=== PATIENT | female | born 1990 | race Caucasian/White ===

== ENCOUNTER 2016-07-24 13:30 | Emergency (ER) | payer OTHER ==
--- NOTE | 2016-07-24 14:59 | ED NURSING NOTES ---
Clinical Report - Nurses [facility] [address] [place] [address] 07/24/2016 13:30 Patient: THA PEREIRA TRIAGE Triage time 1435. Acuity: LEVEL 4. Chief Complaint: RIGHT EAR FORIEGN BODY. --14:41 Lily Quiñonez R.N. 14:35 07/24/16. BP: 96/59. HR: 94. RR: 18. O2 saturation: 100%. Temp: 98.4 F. Pain level now: 07/30. --14:41 Lily Quiñonez R.N. Weight: 56.6 kg stated. Height/Length: 63 inches Per Patient. BMI: 22.1. --14:39 Lily Quiñonez R.N. Medications None. --14:40 Lily Quiñonez R.N. Allergies None. --14:40 Lily Quiñonez R.N. History Arrived by private vehicle. Historian: patient. Accompanied by friend. Onset. (10am was cleaning ear, and cotton cam off q-tip c/o pain and muffled hearring). PAST MEDICAL HX: Negative. Last normal menstrual period- 2 days. SURGERY HX: No history of previous surgery. SOCIAL HX: Light tobacco smoker (cigarette)- less than 1/2 a pack per day. Occasional alcohol use. No drug use. --14:41 Lily Quiñonez R.N. Interventions ID band on patient. To treatment room. --14:41 Lily Quiñonez R.N. PHYSICAL ASSESSMENT 14:50 07/24/16. Ambulatory to room. GENERAL / NEURO / PSYCH: Alert. Appears in no acute distress. HEENT: No facial asymmetry noted. Pupils equal, round and reactive to light. RESPIRATORY: Respirations not labored. CVS: Capillary refill less than 2 seconds. SKIN: Skin is warm and dry. --14:50 Radha Wetzel R.N. NURSING PROGRESS NOTES Two patient identifiers checked. Call light placed in reach. Bed placed in lowest position. Brakes of bed on. Patient ready for evaluation- chart flagged and ED physician and RN QUALITY notified. --14:51 Radha Wetzel R.N. DISPOSITION / DISCHARGE Departure time: 1509Jul 24 2016. Condition at departure: improved and stable. No learning barriers present. Discharge instructions provided and reviewed with the patient. Patient verbalized understanding. Written instructions provided in Comoran. The patient was discharged by the nurse practitioner. She was discharged home and accompanied by literacy tutor. She left the Emergency Department ambulatory and via private vehicle. --18:10 Radha Wetzel R.N. Locked/Released at 07/24/2016 18:10 by Radha Wetzel R.N.
--- NOTE | 2016-07-24 14:59 | ED CLINICAL REPORT ---
Clinical Report - Physicians/Mid Levels [facility] [address] [place] [address] 07/24/2016 13:30 Patient: THA PEREIRA Time Seen: 14:52; initial patient contact, initial documentation, patient care assumed. Arrived- By private vehicle. Historian- patient. HISTORY OF PRESENT ILLNESS Chief Complaint: FOREIGN BODY. This started today and is still present. Modifying factors. Not worsened by anything. Not relieved by anything. Location- right ear. The pain is described as mild. The patient has had ear pain and a foreign body in the ear. No ear drainage, hearing loss, ear trauma, recent barotrauma or tinnitus. (cleaning ears out with qtips this am thinks part of qtip is in ear, did use tweezers and shaking her head to get it out). Similar symptoms previously: None. Recent medical care: Not recently seen/assessed. REVIEW OF SYSTEMS All systems otherwise negative, except as recorded above. PAST HISTORY Negative. SOCIAL HISTORY Light tobacco smoker. Occasional alcohol use. Not exposed to second-hand smoke at home. No drug use. No recent travel. Is a local resident. FAMILY HISTORY Negative. ADDITIONAL NOTES The nursing notes have been reviewed with agreement regarding the chief complaint, HPI, ROS, PMH and patient medications and allergies. PHYSICAL EXAM Vital Signs: 07/24/2016 14:35 BP: 96/59. HR: 94. RR: 18. O2 saturation: 100%. Temp: 98.4 F. Pain level now: 2/10. Have been reviewed as abnormal and appear to be correct. Hypotensive. Heart rate normal. Respiratory rate normal. Temperature normal. Oxygen saturation normal. Appearance: Alert. No acute distress. Eyes: Eyes normal inspection. Throat: Pharynx normal. Ear (left): Left ear normal. Left tympanic membrane normal. Ear (right): Right ear normal. Right tympanic membrane normal. Nose: Nose normal. Neck: Normal inspection. Neck supple. Respiratory: No respiratory distress. Skin: Skin warm and dry. Normal skin color. No rash. Normal skin turgor. Extremities: Extremities exhibit normal ROM. No lower extremity edema. Neuro: Oriented X 3. No motor deficit. No sensory deficit. PROGRESS AND PROCEDURES Patient counseled in person regarding the patient's stable condition and diagnosis. 14:59. Differential Diagnosis: Other possible considerations: aoe, aom, fb, perforated tm. Above considerations are based on history and physical exam. Differential diagnosis was discussed with patient. Disposition: Discharged home in good and improved condition (14:59). Condition: good and stable. CLINICAL IMPRESSION Normal exam upon presentation, while in the ED and at discharge. INSTRUCTIONS Warnings: GENERAL WARNINGS: Return or contact your physician immediately if your condition worsens or changes unexpectedly, if not improving as expected, or if other problems arise. Specifically return if problem worsens. Follow-up: Follow up with your doctor in about one week as needed. Call for an appointment. Summary of care provided to patient. Understanding of the discharge instructions verbalized by patient. (Electronically signed by Judy Cruz A.R.N.P. 07/24/2016 19:19)
--- NOTE | 2016-07-24 14:59 | ED NURSING NOTES ---
Clinical Report - Nurses [facility] [address] [place] [address] 07/24/2016 13:30 Patient: THA PEREIRA TRIAGE Triage time 1435. Acuity: LEVEL 4. Chief Complaint: RIGHT EAR FORIEGN BODY. --14:41 Lily Quiñonez R.N. 14:35 07/24/16. BP: 96/59. HR: 94. RR: 18. O2 saturation: 100%. Temp: 98.4 F. Pain level now: 07/30. --14:41 Lily Quiñonez R.N. Weight: 56.6 kg stated. Height/Length: 63 inches Per Patient. BMI: 22.1. --14:39 Lily Quiñonez R.N. Medications None. --14:40 Lily Quiñonez R.N. Allergies None. --14:40 Lily Quiñonez R.N. History Arrived by private vehicle. Historian: patient. Accompanied by friend. Onset. (10am was cleaning ear, and cotton cam off q-tip c/o pain and muffled hearring). PAST MEDICAL HX: Negative. Last normal menstrual period- 2 days. SURGERY HX: No history of previous surgery. SOCIAL HX: Light tobacco smoker (cigarette)- less than 1/2 a pack per day. Occasional alcohol use. No drug use. --14:41 Lily Quiñonez R.N. Interventions ID band on patient. To treatment room. --14:41 Lily Quiñonez R.N. PHYSICAL ASSESSMENT 14:50 07/24/16. Ambulatory to room. GENERAL / NEURO / PSYCH: Alert. Appears in no acute distress. HEENT: No facial asymmetry noted. Pupils equal, round and reactive to light. RESPIRATORY: Respirations not labored. CVS: Capillary refill less than 2 seconds. SKIN: Skin is warm and dry. --14:50 Radha Wetzel R.N. NURSING PROGRESS NOTES Two patient identifiers checked. Call light placed in reach. Bed placed in lowest position. Brakes of bed on. Patient ready for evaluation- chart flagged and ED physician and MUSIC AUTOGRAPHER notified. --14:51 Radha Wetzel R.N. DISPOSITION / DISCHARGE Departure time: 1509Jul 24 2016. Condition at departure: improved and stable. No learning barriers present. Discharge instructions provided and reviewed with the patient. Patient verbalized understanding. Written instructions provided in Cape Verdean. The patient was discharged by the nurse practitioner. She was discharged home and accompanied by substance abuse technician. She left the Emergency Department ambulatory and via private vehicle. --18:10 Radha Wetzel R.N. Locked/Released at 07/24/2016 18:10 by Radha Wetzel R.N.
--- NOTE | 2016-07-24 19:19 | ED DISCHARGE INSTRUCTIONS ---
Patient: THA PEREIRA General Instructions [facility] VisitID: [id number] [address] [place] [address] 26y, F Registration Date/Time: 07/24/2016 Normal exam upon presentation, while in the ED and at discharge. INSTRUCTIONS Warnings: GENERAL WARNINGS: Return or contact your physician immediately if your condition worsens or changes unexpectedly, if not improving as expected, or if other problems arise. Specifically return if problem worsens. Follow-up: Follow up with your doctor in about one week as needed. Call for an appointment. Summary of care provided to patient. Understanding of the discharge instructions verbalized by patient. ADDITIONAL INFORMATION Normal Exam [6Yr - Adult] Based on your or your child's exam today, there are no signs of illness or injury. Be assured that the symptoms that worried you are normal. They do not suggest any illness requiring testing or treatment at this time. Home Care: You (or your child) can return to normal activities and diet. If you or your child have new or unusual symptoms not already discussed today, contact the doctor. Follow Up with the doctor for the next routine appointment. For more information: For childrens health information: www.kidshealth.org For adult health information: www.[facility].org You have been given the following additional information: Normal Exam, (Child) (Adult) (Electronically signed by Judy Cruz A.R.N.P. 07/24/2016 19:19)
--- NOTE | 2016-07-24 19:19 | ED DISCHARGE INSTRUCTIONS ---
Patient: THA PEREIRA General Instructions [facility] VisitID: [id number] [address] [place] [address] 26y, F Registration Date/Time: 07/24/2016 Normal exam upon presentation, while in the ED and at discharge. INSTRUCTIONS Warnings: GENERAL WARNINGS: Return or contact your physician immediately if your condition worsens or changes unexpectedly, if not improving as expected, or if other problems arise. Specifically return if problem worsens. Follow-up: Follow up with your doctor in about one week as needed. Call for an appointment. Summary of care provided to patient. Understanding of the discharge instructions verbalized by patient. ADDITIONAL INFORMATION Normal Exam [6Yr - Adult] Based on your or your child's exam today, there are no signs of illness or injury. Be assured that the symptoms that worried you are normal. They do not suggest any illness requiring testing or treatment at this time. Home Care: You (or your child) can return to normal activities and diet. If you or your child have new or unusual symptoms not already discussed today, contact the doctor. Follow Up with the doctor for the next routine appointment. For more information: For childrens health information: www.kidshealth.org For adult health information: www.[facility].org You have been given the following additional information: Normal Exam, (Child) (Adult) (Electronically signed by Judy Cruz A.R.N.P. 07/24/2016 19:19)
--- NOTE | 2016-07-24 19:19 | ED MED RECONCILIATION SUMMARY ---
Patient: THA PEREIRA Medication Reconciliation Report [facility] VisitID: [id number] [address] [place] [address] 26y, F Registration Date/Time: 07/24/2016 Weight: 56.6 kg Height/Length: 63 in. BMI: 22.1 ALLERGIES: None The patient's Home Medications are listed below: NONE. The source(s) of the original Home Medication information: Not obtained. The following Medications were given to the patient in the Emergency Department: None. The following Medications were prescribed to the patient: None.
--- NOTE | 2016-07-24 19:19 | ED MED RECONCILIATION SUMMARY ---
Patient: THA PEREIRA Medication Reconciliation Report [facility] VisitID: [id number] [address] [place] [address] 26y, F Registration Date/Time: 07/24/2016 Weight: 56.6 kg Height/Length: 63 in. BMI: 22.1 ALLERGIES: None The patient's Home Medications are listed below: NONE. The source(s) of the original Home Medication information: Not obtained. The following Medications were given to the patient in the Emergency Department: None. The following Medications were prescribed to the patient: None.
--- NOTE | 2016-07-24 19:19 | ED MAR SUMMARY ---
..... Medication Administration Record [facility] [address] [place], [place] [id number] Patient: THA PEREIRA Visit ID: [id number] 26y, F Weight: 56.6 kg Height/Length: 63 in BMI: 22.1 ALLERGIES: None
--- NOTE | 2016-07-24 19:19 | ED MAR SUMMARY ---
..... Medication Administration Record [facility] [address] [place], [place] [id number] Patient: THA PEREIRA Visit ID: [id number] 26y, F Weight: 56.6 kg Height/Length: 63 in BMI: 22.1 ALLERGIES: None
== END 2016-07-24 15:10 | disposition home or self-care (01) ==
LOC: ED SRH 13:30
DX: Z04.3 Encounter for examination and observation following other accident (principal); X58.XXXA Exposure to other specified factors, initial encounter

== ENCOUNTER 2016-08-11 19:19 | Emergency (ER) | payer OTHER ==
--- NOTE | 2016-08-11 20:08 | ED NURSING NOTES ---
Clinical Report - Nurses [facility] [address] [place] [address] 08/11/2016 19:18 Patient: THA PEREIRA TRIAGE Triage time 19:32. Acuity: LEVEL 3. Chief Complaint: ABDOMINAL PAIN and (left sided). --19:37 Kathi Preciado R.N. 19:32 08/11/16. BP: 109/63. HR: 79. RR: 16. O2 saturation: 100% on room air. Temp: 98.2 F (oral). Lindsay-Boyle pain scale: 4/10. --19:37 Kathi Preciado R.N. Weight: 57.6 kg stated. Height/Length: 63 inches Per Patient. BMI: 22.5. --19:36 Kathi Preciado R.N. Medications None. --19:35 Kathi Preciado R.N. Allergies No Known Drug Allergy. --19:35 Kathi Preciado R.N. History Arrived by private vehicle. Historian: patient. Accompanied by family. Primary physician (None). This started today. Onset. (at about 0800 (getting worse for past 2 hours)). Treatment BUSINESS SYSTEMS ANALYST: None. PAST MEDICAL HX: Immunizations: up-to-date. Last normal menstrual period was 1 week ago. No contraception. SOCIAL HX: Light tobacco smoker (cigarette)- less than 1/2 a pack per day. Occasional alcohol use. No drug use. NUTRITIONAL RISK ASSESSMENT: The nutritional risk assessment revealed no deficiencies. FUNCTIONAL ASSESSMENT: Functional assessment: no impairments noted. --19:37 Kathi Preciado R.N. PROBLEMS: Spontaneous (Miscarriage). Anemia. --19:35 Kathi Preciado R.N. ADDITIONAL SURGERIES: None. --19:35 Kathi Preciado R.N. Interventions ID band on patient. To treatment room. --19:37 Kathi Preciado R.N. PHYSICAL ASSESSMENT Ambulatory to room. Patient gowned. GENERAL / NEURO / PSYCH: Alert. Oriented X 4. Appears in pain. HEENT: Mucous membranes are pink. RESPIRATORY: Respirations not labored. CVS: Capillary refill less than 2 seconds. SKIN: Skin is warm and dry. --:38 Kathi Preciado R.N. NURSING PROGRESS NOTES Head of bed elevated. Two patient identifiers checked. Call light placed in reach. Side rails up x 1. Bed placed in lowest position. Brakes of bed on. --:38 Kathi Preciado R.N. Patient ready for evaluation- chart flagged. --19:38 Kathi Preciado R.N. Patient ID band checked for patient name and birthdate: patient confirmed. Instructions provided to collect clean catch urine and patient verbalized understanding. Clean catch urine collected with return of yellow-colored urine; sample sent to lab. Specimen labeled in the presence of the patient. --:38 Kathi Preciado R.N. 19:47 08/11/2016 Site #1 started via IV in the right antecubital space with an 20g angiocath, with aseptic technique and good blood return; one attempt. Blood drawn: rainbow set. Labeled in the presence of the patient and sent to the lab. Saline lock flushed with 10 mL saline. --19:47 Kathi Preciado R.N. 20:15 08/11/2016 Zofran (Ondansetron HCl) IVP 4 mg given over 30 minute(s) via site #1. Allergies verified and confirmed 5 rights. IV patency established. IV site checked: no pain, redness, or swelling. IV flushed thoroughly pre- and post-medication administration. IVP given by RN. --20:17 Kathi Preciado R.N. 20:17 08/11/2016 Toradol IVP 30 mg given over 1 minute(s) via site #1. Allergies verified and confirmed 5 rights. IV patency established. IV site checked: no pain, redness, or swelling. IV flushed thoroughly pre- and post-medication administration. IVP given by RN. --20:18 Kathi Preciado R.N. 20:34 08/11/2016 Site #1 removed upon discharge. Catheter intact. Manual pressure and bandage applied. --20:34 Kathi Preciado R.N. DISPOSITION / DISCHARGE Condition at departure: stable. No learning barriers present. Discharge instructions provided and reviewed with the patient. Reviewed medication(s) side effects, precautions, dosing and course information. Prescription(s) given to the patient. Patient verbalized understanding. Written instructions provided in Ivorian. The patient was discharged home and accompanied by tool sharpener. She left the Emergency Department ambulatory and via private vehicle. Librarian Helper driving. --20:35 Kathi Preciado R.N. 20:34 08/11/16. BP: 96/58. HR: 71. RR: 15. O2 saturation: 99% on room air. Temp: 98.6 F (oral). Lindsay-Boyle pain scale: 2/10. --20:35 Kathi Preciado R.N. Locked/Released at 08/11/2016 20:36 by Kathi Preciado R.N.
--- NOTE | 2016-08-11 20:08 | ED ORDER SUMMARY ---
..... Patient: THA PEREIRA OrderSheet [facility] VisitID: [id number] [address] [place] [address] 26y, F Registration Date/Time: 08/11/2016 ORDER SHEET Weight: 57.6 kg (stated) Allergies: No Known Drug Allergy GENERAL ORDERS: CBC w Diff Urgent (19:47 08/11/2016 RCollier R.N. per protocol) (Ack 19:52 CHategekimana) (20:00 RCollier R.N.) CMP Urgent (19:47 08/11/2016 RCollier R.N. per protocol) (Ack 19:52 CHategekimana) (20:00 RCollier R.N.) UA-Culture if indicated Urgent (19:47 08/11/2016 RCollier R.N. per protocol) (Ack 19:52 CHategekimana) (20:00 RCollier R.N.) Urine Urgent (19:47 08/11/2016 RCollier R.N. per protocol) (Ack 19:52 CHategekimana) (20:00 RCollier R.N.) NPO (19:47 08/11/2016 RCollier R.N. per protocol) (19:48 RCollier R.N.) MEDICATION ORDERS: IV FLUIDS: IV Saline Lock (19:47 08/11/2016 RCollier R.N. per protocol) (Ack 19:47 RCollier R.N.) Toradol IV 30 mg (NOW) (20:07 08/11/2016 HBivens A.R.N.P.) (Ack 20:11 RCollier R.N.) (20:18 RCollier R.N.) Zofran IV 4 mg (NOW) (20:07 08/11/2016 HBivens A.R.N.P.) (Ack 20:11 RCollier R.N.) (20:17 RCollier R.N.) ORDER SHEET NOTES: [Electronically signed by Kathi Preciado R.N. (20:36 08/11/2016)] [Electronically signed by Judy CruzR.N.P. (21:24 08/11/2016)] [Electronically locked/signed by Kathi Preciado R.N. (20:36 08/11/2016)]
--- NOTE | 2016-08-11 20:08 | ED ORDER SUMMARY ---
..... Patient: THA PEREIRA OrderSheet [facility] VisitID: [id number] [address] [place] [address] 26y, F Registration Date/Time: 08/11/2016 ORDER SHEET Weight: 57.6 kg (stated) Allergies: No Known Drug Allergy GENERAL ORDERS: CBC w Diff Urgent (19:47 08/11/2016 RCollier R.N. per protocol) (Ack 19:52 CHategekimana) (20:00 RCollier R.N.) CMP Urgent (19:47 08/11/2016 RCollier R.N. per protocol) (Ack 19:52 CHategekimana) (20:00 RCollier R.N.) UA-Culture if indicated Urgent (19:47 08/11/2016 RCollier R.N. per protocol) (Ack 19:52 CHategekimana) (20:00 RCollier R.N.) Urine Urgent (19:47 08/11/2016 RCollier R.N. per protocol) (Ack 19:52 CHategekimana) (20:00 RCollier R.N.) NPO (19:47 08/11/2016 RCollier R.N. per protocol) (19:48 RCollier R.N.) MEDICATION ORDERS: IV FLUIDS: IV Saline Lock (19:47 08/11/2016 RCollier R.N. per protocol) (Ack 19:47 RCollier R.N.) Toradol IV 30 mg (NOW) (20:07 08/11/2016 HBivens A.R.N.P.) (Ack 20:11 RCollier R.N.) (20:18 RCollier R.N.) Zofran IV 4 mg (NOW) (20:07 08/11/2016 HBivens A.R.N.P.) (Ack 20:11 RCollier R.N.) (20:17 RCollier R.N.) ORDER SHEET NOTES: [Electronically signed by Kathi Preciado R.N. (20:36 08/11/2016)] [Electronically signed by Judy CruzR.N.P. (21:24 08/11/2016)] [Electronically locked/signed by Kathi Preciado R.N. (20:36 08/11/2016)]
--- NOTE | 2016-08-11 20:08 | ED CLINICAL REPORT ---
Clinical Report - Physicians/Mid Levels [facility] [address] [place] [address] 08/11/2016 19:18 Patient: THA PEREIRA Time Seen: 19:41; initial patient contact, initial documentation, patient care assumed. Arrived- By private vehicle. Historian- patient. HISTORY OF PRESENT ILLNESS Chief Complaint: ABDOMINAL PAIN. At its maximum, severity described as severe. When seen in the E.D., severity described as severe. Modifying factors- worsened by movement. Not relieved by anything. It is described as "pain" and it is described as located in the left abdomen and left lower quadrant and the left flank. This started today and is still present and worsening. (2 hours ago). It was abrupt in onset and has been constant. The patient has had nausea. No loss of appetite, vomiting or diarrhea. No additional abdominal pain. No recent travel. Similar symptoms previously: None. Recent medical care: Not recently seen/assessed. REVIEW OF SYSTEMS No constipation, difficulty with urination, pain with urination, bloody stools or fever. No chest pain or difficulty breathing. The patient has had urinary frequency. Denies current . All systems otherwise negative, except as recorded above. PAST HISTORY See nurses notes. PROBLEMS: Spontaneous (Miscarriage). Anemia. --19:35 Kathi Preciado R.N. ADDITIONAL SURGERIES: None. --19:35 Kathi Preciado R.N. SOCIAL HISTORY Light tobacco smoker. Occasional alcohol use. No drug use. No recent travel. Is a local resident. FAMILY HISTORY Negative. ADDITIONAL NOTES The nursing notes have been reviewed with agreement regarding the chief complaint, HPI, ROS, PMH and patient medications and allergies. PHYSICAL EXAM Vital Signs: 08/11/2016 19:32 BP: 109/63. HR: 79. RR: 16. O2 saturation: 100%. Temp: 98.2 F. Lindsay-Boyle pain scale: 4/10. Have been reviewed as normal and appear to be correct. Appearance: Alert. Oriented X3. No acute distress. Eyes: Pupils equal, round and reactive to light. Eyes normal inspection. Neck: Normal inspection. Neck supple. CVS: Normal heart rate and rhythm. Heart sounds normal. Pulses normal. Respiratory: No respiratory distress. Breath sounds normal. Chest nontender. Abdomen: Soft. Mild tenderness in the left lower quadrant. No guarding, rebound tenderness or Milner's, obturator or psoas sign present. Bowel sounds normal. No organomegaly. No mass. Tenderness present. Back: Abnormal inspection. Mild CVA tenderness on the left. Skin: Skin warm and dry. Normal skin color. No rash. Normal skin turgor. Extremities: Extremities exhibit normal ROM. No lower extremity edema. Neuro: Oriented X 3. No motor deficit. No sensory deficit. LABS, X-RAYS, AND EKG Laboratory Tests: UA-Culture if indicated: (PIEDAD: 08/11/2016 19:40) ( [facility] [place] 08/11/2016 20:04) Final results Test Result Flag Units (Reference) URINE COLOR YELLOW URINE APPEARANCE CLOUDY URINE GLUCOSE NEGATIVE (NEGATIVE) URINE BILIRUBIN NEGATIVE (NEGATIVE) URINE KETONE 1+ (NEGATIVE) URINE SPECIFIC GRAVITY >= 1.030 (1.010-1.030) URINE PH 5.5 (5.0-8.0) URINE PROTEIN 2+ (NEGATIVE) URINE UROBILINOGEN 0.2 EU/dL (0.2-1.0) URINE NITRITE POSITIVE (NEGATIVE) URINE BLOOD 3+ (NEGATIVE) URINE LEUK ESTERASE POSITIVE (NEGATIVE) URINE RBC 5-10 rbc/hpf (0-1) URINE WBC >100 wbc/hpf (0-1) URINE EPITHELIAL CELLS 3-5 EPI/hpf (0-5) URINE BACTERIA MODERATE (2+ TO 3+) (NONE SEEN) URINE COMMENT CULTURE INDICATED URINE CULTURES ARE SET-UP BASED ON THE FOLLOWING CRITERIA:POSITIVE NITRITEPOSITIVE LEUKOCYTE ESTERASEGREATER THAN 10 WHITE BLOOD CELLSMODERATE (2+) OR GREATER BACTERIA Urine: (PIEDAD: 08/11/2016 19:40) ( Mscvd 08/11/2016 19:57) Final results Test Result Flag Units (Reference) URINE NEGATIVE CBC w Diff: (PIEDAD: 08/11/2016 19:46) ( MsgRcvd 08/11/2016 19:58) Final results Test Result Flag Units (Reference) WHITE BLOOD COUNT 14.5 H K/uL (4.5-11.5) RED BLOOD COUNT 4.84 M/uL (4.00-5.20) HEMOGLOBIN 13.6 gm/dL (12.0-16.0) HEMATOCRIT 41.8 % (36.0-46.0) MEAN CELL VOLUME 86 fL (80-100) MEAN CORPUSCULAR HGB 28 pg (26-34) MEAN CORPUSCULAR HGB CONC 33 g/dL (31-37) RED CELL DISTRIBUTION WIDTH 14.1 % (11.6-14.8) PLATELET COUNT 245 K/uL (150-400) NEUTROPHIL % 79.2 H % (50-75) LYMPH % 13.1 L % (25-40) MONO % 6.1 % (3-14) EOSINOPHIL % 1.4 % (0-4) BASOPHIL % 0.2 % (0-2) CMP: (PIEDAD: 08/11/2016 19:46) ( MsgRcvd 08/11/2016 20:13) Final results Test Result Flag Units (Reference) GLUCOSE 94 mg/dL (70-110) BUN 13 mg/dL (7-18) CREATININE 0.8 mg/dL (0.6-1.3) Estimated GFR >60 mL/min Estimated GFR- >60 mL/min Note: Persistent reduction over 3 months in eGFR<60 mL/min/1.73 m2 defines CKD. Patients with eGFR values>=60 mL/min/1.73 m2 may also have CKD if evidence ofpersistent proteinuria. Additional information may be foundat www.kidney.org. SODIUM 142 mmol/L (136-145) POTASSIUM 3.6 mmol/L (3.5-5.1) CHLORIDE 103 mmol/L (98-107) CARBON DIOXIDE 30 mmol/L (21-32) CALCIUM 9.0 mg/dL (8.5-10.1) TOTAL PROTEIN 8.0 g/dL (6.4-8.2) ALBUMIN 4.0 g/dL (3.3-5.0) BILIRUBIN, TOTAL 0.3 mg/dL (0.0-1.0) ALKALINE PHOSPHATASE 59 U/L (46-116) AST (SGOT) 13 L U/L (15-37) ALT (SGPT) 16 U/L (12-78) . PROGRESS AND PROCEDURES Course of Care: 20:12 08/11/16. pt has janie for #7 er visits and brief narcs, see report for full details. Patient counseled in person regarding the patient's stable condition, test results and diagnosis. 20:07. Differential Diagnosis: I considered gastritis, peptic ulcer disease, gastroesophageal reflux disease, urinary tract infection, ureterolithiasis, ovarian cyst, ovarian torsion, , ectopic and viral syndrome as a possible cause of abdominal pain in this patient. This is a partial list of diagnoses considered. Above considerations are based on history, physical exam and laboratory data. Differential diagnosis was discussed with patient. Disposition: Discharged home in good and improved condition (20:07). Condition: good and stable. CLINICAL IMPRESSION Acute urinary tract infection with pyelonephritis. No hematuria. Not associated with indwelling catheter or obstruction. INSTRUCTIONS Drink plenty of fluids for the next 24 hours until better. Warnings: GENERAL WARNINGS: Return or contact your physician immediately if your condition worsens or changes unexpectedly, if not improving as expected, or if other problems arise. SPECIFICALLY, return if you develop pain in the abdomen or pelvis, fever, the inability to keep fluids down, blood in vomitus, blood in diarrhea, fainting or lightheadedness. Prescription Medications: Zofran 4 mg: Take 1 orally every six hours as needed for nausea/vomiting. Dispense ten (10). No refills. Substitution is permissible. Trimethoprim-Sulfamethoxazole DS: take 1 tablet orally every 12 hours for 7 days. Dispense fourteen (14). No refills. Toradol 10 mg tablets: Take 1 tablet orally every 6 hours as needed. Dispense fifteen (15). No refills. Substitution is permissible. Pyridium 200 mg: take 1 orally every 8 hours as needed for urinary problems. Dispense six (6). No refills. Substitution is permissible. Follow-up: Follow up with your doctor in about three days even if well. Call for an appointment. Summary of care provided to patient. Understanding of the discharge instructions verbalized by patient. (Electronically signed by Judy Cruz A.R.N.P. 08/11/2016 21:24)
--- NOTE | 2016-08-11 20:08 | ED NURSING NOTES ---
Clinical Report - Nurses [facility] [address] [place] [address] 08/11/2016 19:18 Patient: THA PEREIRA TRIAGE Triage time 19:32. Acuity: LEVEL 3. Chief Complaint: ABDOMINAL PAIN and (left sided). --19:37 Kathi Preciado R.N. 19:32 08/11/16. BP: 109/63. HR: 79. RR: 16. O2 saturation: 100% on room air. Temp: 98.2 F (oral). Lindsay-Boyle pain scale: 4/10. --19:37 Kathi Preciado R.N. Weight: 57.6 kg stated. Height/Length: 63 inches Per Patient. BMI: 22.5. --19:36 Kathi Preciado R.N. Medications None. --19:35 Kathi Preciado R.N. Allergies No Known Drug Allergy. --19:35 Kathi Preciado R.N. History Arrived by private vehicle. Historian: patient. Accompanied by family. Primary physician (None). This started today. Onset. (at about 0800 (getting worse for past 2 hours)). 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 PAST MEDICAL HX: Immunizations: up-to-date. Last normal menstrual period was 1 week ago. No contraception. SOCIAL HX: Light tobacco smoker (cigarette)- less than 1/2 a pack per day. Occasional alcohol use. No drug use. NUTRITIONAL RISK ASSESSMENT: The nutritional risk assessment revealed no deficiencies. FUNCTIONAL ASSESSMENT: Functional assessment: no impairments noted. --19:37 Kathi Preciado R.N. PROBLEMS: Spontaneous (Miscarriage). Anemia. --19:35 Kathi Preciado R.N. ADDITIONAL SURGERIES: None. --19:35 Kathi Preciado R.N. Interventions ID band on patient. To treatment room. --19:37 Kathi Preciado R.N. PHYSICAL ASSESSMENT Ambulatory to room. Patient gowned. GENERAL / NEURO / PSYCH: Alert. Oriented X 4. Appears in pain. HEENT: Mucous membranes are pink. RESPIRATORY: Respirations not labored. CVS: Capillary refill less than 2 seconds. SKIN: Skin is warm and dry. --:38 Kathi Preciado R.N. NURSING PROGRESS NOTES Head of bed elevated. Two patient identifiers checked. Call light placed in reach. Side rails up x 1. Bed placed in lowest position. Brakes of bed on. --:38 Kathi Preciado R.N. Patient ready for evaluation- chart flagged. --19:38 Kathi Preciado R.N. Patient ID band checked for patient name and birthdate: patient confirmed. Instructions provided to collect clean catch urine and patient verbalized understanding. Clean catch urine collected with return of yellow-colored urine; sample sent to lab. Specimen labeled in the presence of the patient. --:38 Kathi Preciado R.N. 19:47 08/11/2016 Site #1 started via IV in the right antecubital space with an 20g angiocath, with aseptic technique and good blood return; one attempt. Blood drawn: rainbow set. Labeled in the presence of the patient and sent to the lab. Saline lock flushed with 10 mL saline. --19:47 Kathi Precaido R.N. 20:15 08/11/2016 Zofran (Ondansetron HCl) IVP 4 mg given over 30 minute(s) via site #1. Allergies verified and confirmed 5 rights. IV patency established. IV site checked: no pain, redness, or swelling. IV flushed thoroughly pre- and post-medication administration. IVP given by RN. --20:17 Kathi Preciado R.N. 20:17 08/11/2016 Toradol IVP 30 mg given over 1 minute(s) via site #1. Allergies verified and confirmed 5 rights. IV patency established. IV site checked: no pain, redness, or swelling. IV flushed thoroughly pre- and post-medication administration. IVP given by RN. --20:18 Kathi Preciado R.N. 20:34 08/11/2016 Site #1 removed upon discharge. Catheter intact. Manual pressure and bandage applied. --20:34 Kathi Preciado R.N. DISPOSITION / DISCHARGE Condition at departure: stable. No learning barriers present. Discharge instructions provided and reviewed with the patient. Reviewed medication(s) side effects, precautions, dosing and course information. Prescription(s) given to the patient. Patient verbalized understanding. Written instructions provided in Israeli. The patient was discharged home and accompanied by social professionals. She left the Emergency Department ambulatory and via private vehicle. Acute Dialysis Registered Nurse driving. --20:35 Kathi Preciado R.N. 20:34 08/11/16. BP: 96/58. HR: 71. RR: 15. O2 saturation: 99% on room air. Temp: 98.6 F (oral). Lindsay-Boyle pain scale: 2/10. --20:35 Kathi Preciado R.N. Locked/Released at 08/11/2016 20:36 by Kathi Preciado R.N.
--- NOTE | 2016-08-11 21:25 | ED MED RECONCILIATION SUMMARY ---
Patient: THA PEREIRA Medication Reconciliation Report [facility] VisitID: [id number] [address] [place] [address] 26y, F Registration Date/Time: 08/11/2016 Weight: 57.6 kg Height/Length: 63 in. BMI: 22.5 ALLERGIES: No Known Drug Allergy The patient's Home Medications are listed below: NONE. The source(s) of the original Home Medication information: Not obtained. The following Medications were given to the patient in the Emergency Department: Zofran [IVP] IVP 4 mg, administered: 08/11/2016 8:15:00 PM Toradol [IVP] IVP 30 mg, administered: 08/11/2016 8:17:00 PM The following Medications were prescribed to the patient: Zofran 4 mg: Take 1 orally every six hours as needed for nausea/vomiting. Dispense ten (10). No refills. Substitution is permissible. -- Judy Cruz, A.R.N.P. Trimethoprim-Sulfamethoxazole DS: take 1 tablet orally every 12 hours for 7 days. Dispense fourteen (14). No refills. -- Judy Cruz, A.R.N.P. Toradol 10 mg tablets: Take 1 tablet orally every 6 hours as needed. Dispense fifteen (15). No refills. Substitution is permissible. -- Judy Cruz, A.R.N.P. Pyridium 200 mg: take 1 orally every 8 hours as needed for urinary problems. Dispense six (6). No refills. Substitution is permissible. -- Judy Cruz, A.R.N.P.
--- NOTE | 2016-08-11 21:25 | ED MAR SUMMARY ---
..... Medication Administration Record [facility] [address] [place] [address] Patient: THA PEREIRA Visit ID: [id number] 26y, F Weight: 57.6 kg Height/Length: 63 in BMI: 22.5 ALLERGIES: No Known Drug Allergy Given 20:15 08/11/2016 Kathi Preciado RJune Medication Administered: ZOFRAN [IVP] (ONDANSETRON HCL), Dose: 4 mg IVP over 30 minute(s), Site: #1 right AC. Medication Ordered: Zofran IV 4 mg (NOW). Given 20:17 08/11/2016 Kathi Preciado, RRomanaN. Medication Administered: TORADOL [IVP], Dose: 30 mg IVP over 1 minute(s), Site: #1 right AC. Medication Ordered: Toradol IV 30 mg (NOW).
--- NOTE | 2016-08-11 21:25 | ED DISCHARGE INSTRUCTIONS ---
Patient: THA PEREIRA General Instructions [facility] VisitID: [id number] [place] [address] 26y, F Registration Date/Time: 08/11/2016 Acute urinary tract infection with pyelonephritis. No hematuria. Not associated with indwelling catheter or obstruction. INSTRUCTIONS Drink plenty of fluids for the next 24 hours until better. Warnings: GENERAL WARNINGS: Return or contact your physician immediately if your condition worsens or changes unexpectedly, if not improving as expected, or if other problems arise. SPECIFICALLY, return if you develop pain in the abdomen or pelvis, fever, the inability to keep fluids down, blood in vomitus, blood in diarrhea, fainting or lightheadedness. Prescription Medications: Zofran 4 mg: Take 1 orally every six hours as needed for nausea/vomiting. Dispense ten (10). No refills. Substitution is permissible. Trimethoprim-Sulfamethoxazole DS: take 1 tablet orally every 12 hours for 7 days. Dispense fourteen (14). No refills. Toradol 10 mg tablets: Take 1 tablet orally every 6 hours as needed. Dispense fifteen (15). No refills. Substitution is permissible. Pyridium 200 mg: take 1 orally every 8 hours as needed for urinary problems. Dispense six (6). No refills. Substitution is permissible. Follow-up: Follow up with your doctor in about three days even if well. Call for an appointment. Summary of care provided to patient. Understanding of the discharge instructions verbalized by patient. ADDITIONAL INFORMATION Bladder Infection,Female (Adult) A bladder infection ("cystitis" or "UTI") usually causes a constant urge to urinate and a burning when passing urine. Urine may be cloudy, smelly or dark. There may be pain in the lower abdomen. A bladder infection occurs when bacteria from the vaginal area enter the bladder opening (urethra). This can occur from sexual intercourse, wearing tight clothing, dehydration and other factors. Home Care: Drink lots of fluids (at least 6-8 glasses a day, unless you must restrict fluids for other medical reasons). This will force the medicine into your urinary system and flush the bacteria out of your body. Avoid sexual intercourse until your symptoms are gone. Avoid caffeine, alcohol and spicy foods. These can irritate the bladder. A bladder infection is treated with antibiotics. You may also be given Pyridium (generic = phenazopyridine) to reduce the burning sensation. This medicine will cause your urine to become a bright orange color. The orange urine may stain clothing. You may wear a pad or panty-liner to protect clothing. Preventing Future Infections: Always wipe from front to back after a bowel movement. Keep the genital area clean and dry. Drink plenty of fluids each day to avoid dehydration. Both sexual partners should wash before intercourse. Urinate right after intercourse to flush out the bladder. Wear cotton underwear and cotton-lined panty hose; avoid tight-fitting pants. If you are on control pills and are having frequent bladder infections, discuss with your doctor. Follow Up: Return to this facility or see your doctor if ALL symptoms are not gone after three days of treatment. Get Prompt Medical Attention if any of the following occur: Fever of 100.4F (38C) or higher, or as directed by your healthcare provider No improvement by the third day of treatment Increasing back or abdominal pain Repeated vomiting; unable to keep medicine down Weakness, dizziness or fainting Vaginal discharge Pain, redness or swelling in the labia (outer vaginal area) Ondansetron Oral disintegrating tablet What is this medicine? ONDANSETRON (on KEVEN se tommie) is used to treat nausea and vomiting caused by chemotherapy. It is also used to prevent or treat nausea and vomiting after surgery. How should I use this medicine? These tablets are made to dissolve in the mouth. Do not try to push the tablet through the foil backing. With dry hands, peel away the foil backing and gently remove the tablet. Place the tablet in the mouth and allow it to dissolve, then swallow. While you may take these tablets with water, it is not necessary to do so. Talk to your composite bond worker regarding the use of this medicine in children. Special care may be needed. What side effects may I notice from receiving this medicine? Side effects that you should report to your doctor or health complex care nurse practitioner as soon as possible: allergic reactions like skin rash, itching or hives, swelling of the face, lips, or tongue breathing problems dizziness fast or irregular heartbeat feeling faint or lightheaded, falls fever and chills swelling of the hands and feet tightness in the chest Side effects that usually do not require medical attention (report to your doctor or health complex care nurse practitioner if they continue or are bothersome): constipation or diarrhea headache What may interact with this medicine? Do not take this medicine with any of the following medications: -apomorphine -cisapride -dofetilide -dronedarone -pimozide -thioridazine -ziprasidone This medicine may also interact with the following medications: -carbamazepine -phenytoin -rifampicin -tramadol -other medicines that prolong the QT interval (cause an abnormal heart rhythm) What if I miss a dose? If you miss a dose, take it as soon as you can. If it is almost time for your next dose, take only that dose. Do not take double or extra doses. Where should I keep my medicine? Keep out of the reach of children. Store between 2 and 30 degrees C (36 and 86 degrees F). Throw away any unused medicine after the expiration date. What should I tell my health care provider before I take this medicine? They need to know if you have any of these conditions: heart disease history of irregular heartbeat liver disease low levels of magnesium or potassium in the blood an unusual or allergic reaction to ondansetron, granisetron, other medicines, foods, dyes, or preservatives or trying to get breast-feeding What should I watch for while using this medicine? Check with your doctor or health complex care nurse practitioner as soon as you can if you have any sign of an allergic reaction. Sulfamethoxazole, Trimethoprim Oral tablet What is this medicine? SULFAMETHOXAZOLE; TRIMETHOPRIM or SMX-TMP (suhl fuh meth OK imer zohl; trye METH oh prim) is a combination of a sulfonamide antibiotic and a second antibiotic, trimethoprim. It is used to treat or prevent certain kinds of bacterial infections. It will not work for colds, flu, or other viral infections. How should I use this medicine? Take this medicine by mouth with a full glass of water. Follow the directions on the prescription label. Take your medicine at regular intervals. Do not take it more often than directed. Do not skip doses or stop your medicine early. Talk to your composite bond worker regarding the use of this medicine in children. Special care may be needed. This medicine has been used in children as young as 2 months of age. What side effects may I notice from receiving this medicine? Side effects that you should report to your doctor or health complex care nurse practitioner as soon as possible: allergic reactions like skin rash or hives, swelling of the face, lips, or tongue breathing problems fever or chills, sore throat irregular heartbeat, chest pain joint or muscle pain pain or difficulty passing urine red pinpoint spots on skin redness, blistering, peeling or loosening of the skin, including inside the mouth unusual bleeding or bruising unusually weak or tired yellowing of the eyes or skin Side effects that usually do not require medical attention (report to your doctor or health complex care nurse practitioner if they continue or are bothersome): diarrhea dizziness headache loss of appetite nausea, vomiting nervousness What may interact with this medicine? Do not take this medicine with any of the following medications: aminobenzoate potassium dofetilide metronidazole This medicine may also interact with the following medications: LEONIDAS inhibitors like benazepril, enalapril, lisinopril, and ramipril cyclosporine digoxin diuretics indomethacin medicines for diabetes methenamine methotrexate phenytoin potassium supplements pyrimethamine sulfinpyrazone tricyclic antidepressants warfarin What if I miss a dose? If you miss a dose, take it as soon as you can. If it is almost time for your next dose, take only that dose. Do not take double or extra doses. Where should I keep my medicine? Keep out of the reach of children. Store at room temperature between 20 to 25 degrees C (68 to 77 degrees F). Protect from light. Throw away any unused medicine after the expiration date. What should I tell my health care provider before I take this medicine? They need to know if you have any of these conditions: anemia asthma being treated with anticonvulsants if you frequently drink alcohol containing drinks kidney disease liver disease low level of folic acid or [id number] dehydrogenase poor nutrition or malabsorption porphyria severe allergies thyroid disorder an unusual or allergic reaction to sulfamethoxazole, trimethoprim, sulfa drugs, other medicines, foods, dyes, or preservatives or trying to get breast-feeding What should I watch for while using this medicine? Tell your doctor or health complex care nurse practitioner if your symptoms do not improve. Drink several glasses of water a day to reduce the risk of kidney problems. Do not treat diarrhea with over the counter products. Contact your doctor if you have diarrhea that lasts more than 2 days or if it is severe and watery. This medicine can make you more sensitive to the sun. Keep out of the sun. If you cannot avoid being in the sun, wear protective clothing and use a sunscreen. Do not use sun lamps or tanning beds/booths. Ketorolac Tromethamine Oral tablet What is this medicine? KETOROLAC (sylvia toe ROLE ak) is a non-steroidal anti-inflammatory drug (NSAID). It is used for a short while to treat moderate to severe pain, including pain after surgery. It should not be used for more than 5 days. How should I use this medicine? Take this medicine by mouth with a full glass of water. Follow the directions on the prescription label. Take your medicine at regular intervals. Do not take your medicine more often than directed. Do not take more than the recommended dose. A special MedGuide will be given to you by the pharmacist with each prescription and refill. Be sure to read this information carefully each time. Talk to your composite bond worker regarding the use of this medicine in children. While this drug may be prescribed for children as young as 16 years of age for selected conditions, precautions do apply. Patients over 65 years old may have a stronger reaction and need a smaller dose. What side effects may I notice from receiving this medicine? Side effects that you should report to your doctor or health complex care nurse practitioner as soon as possible: allergic reactions like skin rash, itching or hives, swelling of the face, lips, or tongue black or tarry stools breathing problems changes in vision chest pain high blood pressure nausea or vomiting redness, blistering, peeling or loosening of the skin, including inside the mouth severe abdominal pain slurred speech or weakness on one side of the body unexplained weight gain or swelling unusual bleeding or bruising unusually weak or tired yellowing of eyes or skin Side effects that usually do not require medical attention (report to your doctor or health complex care nurse practitioner if they continue or are bothersome): diarrhea dizziness headache heartburn What may interact with this medicine? Do not take this medicine with any of the following medications: aspirin and aspirin-like medicines cidofovir methotrexate NSAIDs, medicines for pain and inflammation, like ibuprofen or naproxen pemetrexed probenecid This medicine may also interact with the following medications: alcohol alendronate alprazolam carbamazepine cyclosporine diuretics flavocoxid fluoxetine ginkgo lithium medicines for high blood pressure like enalapril medicines that affect platelets like pentoxifylline medicines that treat or prevent blood clots like heparin, warfarin muscle relaxants phenytoin steroid medicines like prednisone or cortisone thiothixene What if I miss a dose? If you miss a dose, take it as soon as you can. If it is almost time for your next dose, take only that dose. Do not take double or extra doses. Where should I keep my medicine? Keep out of the reach of children. Store at room temperature between 20 and 25 degrees C (68 and 77 degrees F). Throw away any unused medicine after the expiration date. What should I tell my health care provider before I take this medicine? They need to know if you have any of these conditions: asthma bleeding problems like hemophilia cigarette smoker drink more than 3 alcohol containing drinks a day heart disease or circulation problems such as heart failure or leg edema (fluid retention) high blood pressure kidney disease liver disease stomach bleeding or ulcers an unusual or allergic reaction to ketorolac, aspirin, other NSAIDs, other medicines, foods, dyes, or preservatives or trying to get breast-feeding What should I watch for while using this medicine? Tell your doctor or health complex care nurse practitioner if your pain does not get better. Talk to your doctor before taking another medicine for pain. Do not treat yourself. This medicine does not prevent heart attack or stroke. In fact, this medicine may increase the chance of a heart attack or stroke. The chance may increase with longer use of this medicine and in people who have heart disease. If you take aspirin to prevent heart attack or stroke, talk with your doctor or health complex care nurse practitioner. Do not take medicines such as ibuprofen and naproxen with this medicine. Side effects such as stomach upset, nausea, or ulcers may be more likely to occur. Many medicines available without a prescription should not be taken with this medicine. This medicine can cause ulcers and bleeding in the stomach and intestines at any time during treatment. Do not smoke cigarettes or drink alcohol. These increase irritation to your stomach and can make it more susceptible to damage from this medicine. Ulcers and bleeding can happen without warning symptoms and can cause . You may get drowsy or dizzy. Do not drive, use machinery, or do anything that needs mental alertness until you know how this medicine affects you. Do not stand or sit up quickly, especially if you are an older patient. This reduces the risk of dizzy or fainting spells. This medicine can cause you to bleed more easily. Try to avoid damage to your teeth and gums when you brush or floss your teeth. Phenazopyridine Hydrochloride Oral tablet What is this medicine? PHENAZOPYRIDINE (fen rebeca oh KINSEY john kevin) is a pain reliever. It is used to stop the pain, burning, or discomfort caused by infection or irritation of the urinary tract. This medicine is not an antibiotic. It will not cure a urinary tract infection. How should I use this medicine? Take this medicine by mouth with a glass of water. Follow the directions on the prescription label. Take after meals. Take your doses at regular intervals. Do not take your medicine more often than directed. Do not skip doses or stop your medicine early even if you feel better. Do not stop taking except on your doctor's advice. Talk to your composite bond worker regarding the use of this medicine in children. Special care may be needed. What side effects may I notice from receiving this medicine? Side effects that you should report to your doctor or health complex care nurse practitioner as soon as possible: allergic reactions like skin rash, itching or hives, swelling of the face, lips, or tongue blue or purple color of the skin difficulty breathing fever less urine unusual bleeding, bruising unusual tired, weak vomiting yellowing of the eyes or skin Side effects that usually do not require medical attention (report to your doctor or health complex care nurse practitioner if they continue or are bothersome): dark urine headache stomach upset What may interact with this medicine? Interactions are not expected. What if I miss a dose? If you miss a dose, take it as soon as you can. If it is almost time for your next dose, take only that dose. Do not take double or extra doses. Where should I keep my medicine? Keep out of the reach of children. Store at room temperature between 15 and 30 degrees C (59 and 86 degrees F). Protect from light and moisture. Throw away any unused medicine after the expiration date. What should I tell my health care provider before I take this medicine? They need to know if you have any of these conditions: [id number] dehydrogenase (G6PD) deficiency kidney disease an unusual or allergic reaction to phenazopyridine, other medicines, foods, dyes, or preservatives or trying to get breast-feeding What should I watch for while using this medicine? Tell your doctor or health complex care nurse practitioner if your symptoms do not improve or if they get worse. This medicine colors body fluids red. This effect is harmless and will go away after you are done taking the medicine. It will change urine to an dark orange or red color. The red color may stain clothing. Soft contact lenses may become permanently stained. It is best not to wear soft contact lenses while taking this medicine. If you are diabetic you may get a false positive result for sugar in your urine. Talk to your health care provider. You have been given the following additional information: Bladder Infection, Female (Adult) Ondansetron Oral disintegrating tablet Sulfamethoxazole, Trimethoprim Oral tablet Ketorolac Tromethamine Oral tablet Phenazopyridine Hydrochloride Oral tablet (Electronically signed by Judy Cruz A.R.N.P. 08/11/2016 21:24)
--- NOTE | 2016-08-11 21:25 | ED MAR SUMMARY ---
..... Medication Administration Record [facility] [address] [place] [address] Patient: THA PEREIRA Visit ID: [id number] 26y, F Weight: 57.6 kg Height/Length: 63 in BMI: 22.5 ALLERGIES: No Known Drug Allergy Given 20:15 08/11/2016 Kathi Preciado RJune Medication Administered: ZOFRAN [IVP] (ONDANSETRON HCL), Dose: 4 mg IVP over 30 minute(s), Site: #1 right AC. Medication Ordered: Zofran IV 4 mg (NOW). Given 20:17 08/11/2016 Kathi Preciado, RRomanaN. Medication Administered: TORADOL [IVP], Dose: 30 mg IVP over 1 minute(s), Site: #1 right AC. Medication Ordered: Toradol IV 30 mg (NOW).
--- NOTE | 2016-08-11 21:25 | ED MED RECONCILIATION SUMMARY ---
Patient: THA PEREIRA Medication Reconciliation Report VisitID: [id number] [address] [place] [address] 26y, F Registration Date/Time: 08/11/2016 Weight: 57.6 kg Height/Length: 63 in. BMI: 22.5 ALLERGIES: No Known Drug Allergy The patient's Home Medications are listed below: NONE. The source(s) of the original Home Medication information: Not obtained. The following Medications were given to the patient in the Emergency Department: Zofran [IVP] IVP 4 mg, administered: 08/11/2016 8:15:00 PM Toradol [IVP] IVP 30 mg, administered: 08/11/2016 8:17:00 PM The following Medications were prescribed to the patient: Zofran 4 mg: Take 1 orally every six hours as needed for nausea/vomiting. Dispense ten (10). No refills. Substitution is permissible. -- Judy Cruz, A.R.N.P. Trimethoprim-Sulfamethoxazole DS: take 1 tablet orally every 12 hours for 7 days. Dispense fourteen (14). No refills. -- Judy Cruz, A.R.N.P. Toradol 10 mg tablets: Take 1 tablet orally every 6 hours as needed. Dispense fifteen (15). No refills. Substitution is permissible. -- Judy Cruz, A.R.N.P. Pyridium 200 mg: take 1 orally every 8 hours as needed for urinary problems. Dispense six (6). No refills. Substitution is permissible. -- Judy Cruz, A.R.N.P.
== END 2016-08-11 20:33 | disposition home or self-care (01) ==
LOC: ED SRH 19:19
DX: N39.0 Urinary tract infection, site not specified (principal); N10 Acute pyelonephritis; Z72.0 Tobacco use
CPT/HCPCS: 90004; 90100; 90148; 90469; 93070; 95059